=== PATIENT | female | born 2000 | race Caucasian/White ===

== ENCOUNTER 2023-05-19 12:51 | Outpatient (RCR) | payer MEDICARE, MEDICAID, SELFPAY ==
--- NOTE | 2023-06-10 13:45 | MHC.SP.ADU ---
Referring provider: Dr. 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 Saundra Pruitt, due to parental concerns regarding Mirna?s ability to make herself understood to others. Mirna?s parents, and Mrs. Villeda, identified Mirna to have the following areas of difficulty: expressing thoughts, being understood by others, attention, reading, writing, finding words, and maintaining topic of conversation. and Mrs. Villeda report Mirna?s speech can be clear at times, and other times she is very hard to understand, especially when she?s speaking quickly. Mirna completed high school in 2019, where she had an IEP and regularly received speech therapy. Upon graduating, Mirna participated in a transitional program in , which she will complete this May when she turns 23 years old. Her parents say she will be looking for work opportunities locally, and would like to support Mirna?s independence and hope for her to ?find ways to improve her speech? as she makes this transition. Mirna reportedly completes many of her ADLs on her own and enjoys helping with cleaning, but ?needs a routine? and ?gets nervous with changes.? [place] is the [place] language of Mirna?s family and she is one of 8 children. Per Mrs. Villeda, although Mirna understands Australian, she expresses herself in Italian. Mirna has glasses, but does not wear them. She has an appointment in May to assess her hearing at [facility]. Assessment Speech Production: Dysarthric Clinical Impression: Impaired Observations: Mirna was evaluated using the Ring Fristoe Test of Articulation -3rd Edition (GFTA-3). The GFTA-3 is a standardized assessment designed to evaluate speech sound abilities in children, adolescents, and adults ages 2;0 through 21;11 years old. The GFTA-3 assesses the production of Italian consonant sounds in the initial, medial, and final position of words. Mirna was administered the Sounds in Words subtest, to measure her production of consonant sounds in various positions at the word level. Her performance is summarized below: Sounds in Words Score Summary Raw Score: 52 Standard Score: 40 Percentile Rank: <0.1% Interpretation: Very low/severe range Standardized assessment identified Mirna?s articulation skills to be in the severe/very low range. She presented with the following phonological processing patterns at the single word level: -Deaffrication: This pattern occurs when an affricate sound such as ?ch? or ?j? is substituted with a fricative or stop sound such as ?sh? or /d/ (watch produced as ?wash?) -Gliding: /r/ or /l/ is substituted with /w/ or ?y? (e.g. drum produced as ?dwum?; plate as ?pyate?) -Weak syllable deletion: When a weak syllable is omitted from a word (e.g. pajamas produced as ?jamas?) -Consonant cluster reduction: This pattern constitutes reducing clusters of consonants to a single sound (e.g. monkey produced as ?muh-altamirano,? quack as ?kack?) -Stopping: A fricative or affricate sound such as /f/, /s/, ?ch,? or ?j? is substituted with a stop sound such as /p/ or /d/ (e.g. thumb produced as ?tumb?). -Assimilation: When a sound takes on characteristics of surrounding sounds in a word (e.g. vegetable produced as ?be-be-buh?; brother as ?muh-deh?). Mirna?s overall speech intelligibility was notably affected by her omission of sounds and syllables (e.g. teeth produced as ?nidia,? glasses as ?gya-ss,,? yellow as ?el-oh?), idiosyncratic words (i.e. zebra as ?ez-wa,?), and a preference for the ?y? sound (i.e. spider produced as ?spi-david?). At the single word level with context, Mirna was approximately 60-70% intelligible to the clinician, an unfamiliar but trained listener. The clinician frequently asked Mirna for repetition or clarification due to her reduced speech intelligibility. Impressions and Recommendations Summary: Impact on Daily Function/Activity Limitations: Daily Activities: Moderate Interpersonal Interactions: Moderate Education: Moderate Employment: Moderate Community: Moderate Recommendation for Speech Therapy: Outpatient Speech Therapy Frequency/Duration: 1x weekly x 12 weeks Date Range for Service Requested: Time to Reassess: 6 months Long-Term Goals: 1. Mirna will be administered selected standardized assessments of receptive and expressive language with 100% completion to update goals as needed. 2. Mirna will improve her overall speech intelligibility in connected speech to effectively communicate her wants and needs with both familiar and unfamiliar communication partners. Short Term Goals: Goal # : 1.1. Mirna will complete the Lexical/Semantic, Syntactic, and Supralinguistic/Pragmatic Tests of the Comprehensive Assessment of Spoken Language-Second Edition (CASL-3) with 100% completion in 2-3 consecutive sessions. Goal Status: New Goal Goal# : 2.1. Mirna will use a pacing board and segmentation cues to improve articulation while producing multisyllabic words and phrases (2-4 syllables) in 80% of trials when provided with an immediate verbal and visual model. 2.2. Mirna will ana lilia final consonants in salient CVC words with 80% accuracy and immediate verbal models and tactile cues. 2.3. Mirna and her caregivers will identify 20 functional words she uses in her daily routine to be practiced as therapy targets for improved speech clarity. Goal Status: New Goal Patient Education: Completed: Yes Patient/Caregiver Education: Described Results of Evaluation Family/Caregivers expressed understanding of results Comments/Barriers to Learning: Bottom Man Clinican/Clinical Fellow: No Supervisory Statement: N/A Speech Language Pathologist: Christy Hutton M.A., CCC-INVENTORY CONTROL SUPERVISOR
== END 2023-06-11 15:58 | disposition still patient (30) ==
LOC: HO.SH 12:51
PROVIDERS: Visit Provider Internal Medicine
DX: Q90.9 Down syndrome, unspecified (principal)
CPT/HCPCS: 92522

== ENCOUNTER 2023-11-16 14:00 | Outpatient (RCR) | payer MEDICARE, MEDICAID, SELFPAY ==
--- NOTE | 2023-08-24 16:45 | MHC.SL.SOA ---
Referring Provider: Dr. 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 Once in the room, Blair practiced a more typical greeting in a role play with good eye contact and appropriate language and behavior. Today is Blair's 10th session, and part of the session went to completing a re-evaluation for measuring progress and re-authorizing services with her insurance. Blair completed the word portion of the Ring Fristoe Test of articulation for this purpose with results reported below. Objective: Blair completed exercises to improve articulation and speech production and self monitoring for speech. Assessment:Goal 1: Mirna was re- evaluated using the Ring Fristoe Test of Articulation -3rd Edition (GFTA-3). The GFTA-3 is a standardized assessment designed to evaluate speech sound abilities in children, adolescents, and adults ages 2;0 through 21;11 years old. The GFTA-3 assesses the production of Italian consonant sounds in the initial, medial, and final position of words. Mirna was administered the Sounds in Words subtest, to measure her production of consonant sounds in various positions at the word level. Blair was also given this test at her initial assessment at the end of April last year with raw scores reported to indicate progress: GFTA-25 April 2023: Raw Score: 52 GFTA-3 08/24/23: Raw Score 34 Comment: Blair has made very good progress with her speech production. Notably, the area of greatest progress has been with more consistently producing the final consonant, or endings, in words which has improved her overall intelligibility. She is more consistently producing glottal sounds k/g in all positions in words. She is approximating affricate sounds /th, ch, sh) more consistently. She continues to have the most difficulty producing and sequencing sounds in multisyllabic words. On these words she very consistently made errors, reduplicated sounds and/or used a stereotyped word v. target. When asked to produce each syllable in isolation she was stimulable for the sounds. She continues to frequently de-voice /z, b, g, d/ consonants. She continues to be moderately unintelligible in her connected/spontaneous speech. However, given her progress in 10 sessions, it is recommended she continue to receive speech therapy to assist her with functional communication. Goal 2.1 n/a today Goal 2.2 Blair produced voiceless th final cvc words with 70% accuracy. She produced /sh/ final words with 70% accuracy. She produced /ch/ final words with 60% accuracy. Goal 2.3: Blair practiced social phrases associated with greetings, departures using role play with 700% accuracy. She produced her functional phases, saying all of the words scripted with 80% accuracy. Notes: Plan: Goal # : 1.1. Mirna will complete the Lexical/Semantic, Syntactic, and Supralinguistic/Pragmatic Tests of the Comprehensive Assessment of Spoken Language-Second Edition (CASL-3) with 100% completion in 2-3 consecutive sessions. Status of Goal: Revised Goal Goal # : 2.1. Mirna will use a pacing board and segmentation cues to improve articulation while producing multisyllabic words and phrases (2-4 syllables) in 80% of trials when provided with an immediate verbal and visual model. 2.2. Mirna will ana lilia final consonants in salient CVC words with 80% accuracy and immediate verbal models and tactile cues. 2.3. Mirna and her caregivers will identify 20 functional words she uses in her daily routine to be practiced as therapy targets for improved speech clarity. Status of Goal: Goal # : Status of Goal: Goal # : Status of Goal: Seen by: Graduate/Clinical Fellow: No Supervisory Statement: f_Reg Query Last Value , MHC.AU.SIGNATUR Speech Language Pathologist: Henna Marks M.A., [facility]-INDUSTRIAL MAINTENANCE TECHNICIAN
--- NOTE | 2023-12-28 12:22 | MHC.SL.SOA ---
Referring Provider: Dr. Saundra Pruitt Reason for Referral: Reduced speech intelligibility Date of Plan of Treatment:05/19/23 Onset of Symptoms/Illness:01 Date Treatment Started:05/19/23 Medical Diagnosis:Down's Syndrome Primary Speech Language Diagnosis:F80.0 Specific developmental disorders of speech and language Secondary Speech Language Diagnosis:R41.841 Cognitive communication disorder Number of Authorized Visits Remaining: Authorization End Date: Reason for Visit:[id number] Individual Treatment Other: Subjective:Blair arrived today with her mother for speech therapy. Her mother reported that Blair had consistently been motivated to come and work with me throughout this period of therapy, which was a positive behavior for her, as her habit is to be resistant to new people and demand put on her to do speaking and communication tasks. As planned, this was Blair's last session after completing 20 weeks of therapy. Blair overall has made some improvement in her speech articulation skills, general intelligibility and willingness to engage in simple conversational exchanges. Next steps, relative to Blair being reconnected to a job training program was discussed again with her mother, who said that she was in touch with [employer], however she is waiting to hear back from them regarding programming. Blair and her family are planning a number of activities together. Objective: Blair completed exercises to improve articulation and speech production and self monitoring for speech. She was given similar exercises for carry over/home practice at the end of the session. Assessment:Goal 1:Blair at onset of therapy was presented with some subtests of the CELF 5, demonstrating a highly restricted/limited range of expressive syntax and morphology (e.g. longest utterance 3-4 words). On further testing using a receptive/expressive vocabulary testing, results fell in the severely below average range (pre-k/k), consistent with a severe cognitive linguistic developmental disorder. Goal 2.1 On targets of three word phrases that were practiced the previous week and sent home for practice over this past week, Blair formulated and produced three word phrases to describe a picture sequence with 100% accuracy and 70% intelligibility. Goal 2.2 Blair produced final k in words with 80% accuracy needing some direct cuing. Blair produced /sh/ in final positions in words with 80% accuracy. Blair produced final /g/ words with 80% accuracy. Mirna produced final /d/ in words with 80% accuracy. Blair produced final /t/ in words with 80% accuracy. Blair produced final /n/ in words with 70% accuracy, Blair produced final /th/ in words with 70% accuracy and required some direct cuing. Goal 2.3: Blair engaged in a short functional conversation with the therapist about summer plans. The therapist modelled three things she liked doing, with Blair reciprocating but requiring cuing to come up with more than just one response. She was able to talk about playing basket ball, going to [employer] (which [place] to [place] [employer] when her mother was queried) and playing with her nieces and nephews. Intelligibility during this spontaneous exchange was at 60%, with Blair having some difficulty with self correcting. However the length of the exchange is markedly improved Discharge Comments: Overall Blair has made good improvement in her speech articulation and functional communication during this period of Therapy. Blair in particular has improved targeting production of speech sounds in structured activities, and in structured activities is more able to produce multisyllabic words with contrasting consonant targets. There is evidence of some, though marginal generalization of these skills to her connected speech. She demonstrated some improvement in her ability to engage in expected social routines of greeting and departure and making small talk to initiate a conversation, however this may be the result of the repetative structure of the therapy session and her comfort with the Therapist. Blair is still limited in her willingness to engage in verbal communication with others who are not within her family, and has a strong tendency to withdraw and avoid which will continue to be an obstacle for her as she adjusts to young adulthood. As this was a trial period of therapy for Blair, who as an adult, is no longer receiving interventions that she likely had throughout her Education, and has very established behaviors and limitations, made some limited progress. Her mother was encouraged to consider another period of tune up in six months if wanted/needed, which she stated she would consider. Blair was given an ample set of exercises with speech targets to continue practice as desired at home. Notes: Plan: Goal # : 1.1. Mirna will complete the Lexical/Semantic, Syntactic, and Supralinguistic/Pragmatic Tests of the Comprehensive Assessment of Spoken Language-Second Edition (CASL-3) with 100% completion in 2-3 consecutive sessions. Status of Goal: Discharge Goal Goal # : 2.1. Mirna will use a pacing board and segmentation cues to improve articulation while producing multisyllabic words and phrases (2-4 syllables) in 80% of trials when provided with an immediate verbal and visual model. 2.2. Mirna will ana lilia final consonants in salient CVC words with 80% accuracy and immediate verbal models and tactile cues. 2.3. Mirna and her caregivers will identify 20 functional words she uses in her daily routine to be practiced as therapy targets for improved speech clarity. Status of Goal: Discharge Goal Goal # : Status of Goal: Goal # : Status of Goal: Seen by: Graduate/Clinical Fellow: No Supervisory Statement: f_Reg Query Last Value , MHC.AU.SIGNAT Speech Language Pathologist: Henna Marks M.A., CCC-COBOL APPLICATION DEVELOPER
== END 2023-12-28 13:05 | disposition home or self-care (01) ==
LOC: HO.SH 14:00
PROVIDERS: Visit Provider Internal Medicine
DX: F80.0 Phonological disorder (principal); R41.841 Cognitive communication deficit
CPT/HCPCS: 92507